=== PATIENT | male | born 1995 | race Caucasian/White ===

== ENCOUNTER 2018-01-08 15:21 | Emergency (ER) | payer MEDICAID ==
[~2018-01-08] VITALS: Ht 167.6 cm; Wt 81.8 kg
[2018-01-08 18:17] VITALS: BP 121/68
== END 2018-01-08 18:45 | disposition home or self-care (01) ==
LOC: EMS 15:23
DX: R07.9 Chest pain, unspecified (principal); F17.210 Nicotine dependence, cigarettes, uncomplicated; F12.90 Cannabis use, unspecified, uncomplicated
CPT/HCPCS: 93005; 99284